=== PATIENT | male | born 1955 | race Caucasian/White ===

== ENCOUNTER → 2017-12-10 13:24 | Outpatient (CLI) | payer OTHER, MEDICARE, SELFPAY ==
--- NOTE | 2017-12-10 13:38 | EKG12_ITS ---
Test Reason : MEDICATION USE Blood Pressure : / mmHG Vent. Rate : 069 BPM Atrial Rate : 069 BPM P-R Int : 156 ms QRS Dur : 090 ms QT Int : 368 ms P-R-T Axes : 024 049 027 degrees QTc Int : 394 ms Normal sinus rhythm Low voltage QRS Nonspecific ST and T wave abnormality Abnormal ECG Confirmed by CESAR BROWN ([id number]), make up editor BERKLEY MONIQUE ([id number]) on 12/20/2017 4:53:06 PM Referred By: OUT DOCTOR Confirmed By:CESAR BROWN
== END ==
PROVIDERS: Family Provider Nurse Practitioner; PCP Nurse Practitioner
DX: G20 Parkinson's disease (principal); Z79.899 Other long term (current) drug therapy; R44.3 Hallucinations, unspecified
CPT/HCPCS: 93005

== ENCOUNTER → 2018-03-07 12:51 | Outpatient (CLI) | payer OTHER, MEDICARE, SELFPAY | PROVIDERS: Family Provider Nurse Practitioner; PCP Nurse Practitioner; Visit Provider Nurse Practitioner | DX: R05 Cough (principal) | CPT/HCPCS: 71046 ==

== ENCOUNTER → 2018-03-07 13:43 | Outpatient (CLI) | payer OTHER, MEDICARE, SELFPAY ==
[2018-03-07 13:51] LABS: Hematocrit 39.1 % (40-54); Hemoglobin 13.7 g/dl (13.0-16.5); Mean Corpuscular Hgb 33.1 pg (27.0-32.0); Mean Corpuscular Volume 94.4 fL (80-94); Platelet Count 167 K/mm3 (150-450); RBC Distribution Width CV 12.5 % (11.6-14.6); RBC Distribution Width SD 42.2 fl (35.1-43.9); Red Blood Count 4.14 M/mm3 (4.6-6.2); Scan Indicated on CBC? Y/N NO; White Blood Count 4.8 K/mm3 (4.4-11.0)
[2018-03-07 14:16] LABS: ALB/GLOB Ratio 1.1 RATIO (0.9-2.4); AST(SGOT) 22 U/L (15-37); Alanine Aminotransfer ALT/SGPT 10 U/L (16-61); Albumin, Serum 3.4 g/dL (3.2-5.0); Alkaline Phosphatase 60 U/L (45-117); Anion Gap 10 (5-15); BUN 17 mg/dL (7-18); BUN/Creat Ratio 13.2 RATIO (10-20); Calcium,Total 8.5 mg/dL (8.5-10.1); Chloride 107 mmol/L (98-107); Creatinine, Serum 1.29 mg/dL (0.70-1.30); EST Glomerular Filtration Rate 60 mL/min (>60); Est Glom Filt Rate - Afr Amer 72 mL/min (>60); Globulin 3.1 g/dL (2.2-4.2); Glucose 98 mg/dL (74-106); Protein, Total 6.5 g/dL (6.4-8.2); Sodium Level 140 mmol/L (136-145)
== END ==
PROVIDERS: Family Provider Nurse Practitioner; PCP Nurse Practitioner; Visit Provider Nurse Practitioner
DX: R05 Cough (principal)
CPT/HCPCS: 80053; 85027

== ENCOUNTER 2018-03-08 12:21 | Emergency (ER) | payer OTHER, MEDICARE, SELFPAY ==
[2018-03-08 12:23] VITALS: BP 131/84; PULSE 84; RESP 25; TEMP 36.6; O2SAT 94; BMI 26.7
[2018-03-08 13:07] LABS: Absolute Lymphocyte Count 0.38 X10^3/ul (0.83-4.51); Absolute Neutrophil Count 3.1 X10^3/uL (2.0-7.7); Basophil# 0.01 X10^3/uL; Basophil% 0.2 % (0-1); Differential Indicated SCAN CRITERIA MET; Eosinophil# 0.11 X10^3/uL; Eosinophils% 2.6 % (0-5); Hematocrit 39.4 % (40-54); Hemoglobin 13.6 g/dl (13.0-16.5); Lymphocyte # 0.38 X10^3/ul (4.0); Mean Corp Hgb Conc 34.5 g/gl (32-36); Mean Corpuscular Hgb 32.5 pg (27.0-32.0); Mean Corpuscular Volume 94.3 fL (80-94); Mean Platelet Vol. 9.7 fl (6.2-12.0); Monocyte# 0.57 X10^3/uL; Monocyte% 13.5 % (0-10); Neutrophil # 3.14 X10^3/uL (2.7-7.7); Neutrophil % 74.5 % (47-70); POSITIVE COUNT NO; POSITIVE DIFFERENTIAL YES; POSITIVE MORPHOLOGY NO; Platelet Count 169 K/mm3 (150-450); RBC Distribution Width CV 12.8 % (11.6-14.6); RBC Distribution Width SD 44.1 fl (35.1-43.9); Red Blood Count 4.18 M/mm3 (4.6-6.2); White Blood Count 4.2 K/mm3 (4.4-11.0)
[2018-03-08 13:18] LABS: Anion Gap 10 (5-15); BUN 17 mg/dL (7-18); BUN/Creat Ratio 12.7 RATIO (10-20); Calcium,Total 8.9 mg/dL (8.5-10.1); Chloride 106 mmol/L (98-107); Creatinine, Serum 1.34 mg/dL (0.70-1.30); EST Glomerular Filtration Rate 57 mL/min (>60); Est Glom Filt Rate - Afr Amer 69 mL/min (>60); Estimated Creatinine Clearance 63.77 ml/min; Glucose 100 mg/dL (74-106); Potassium 3.6 mmol/L (3.5-5.1); Sodium Level 139 mmol/L (136-145)
[2018-03-08 13:22] VITALS: BP 124/79; PULSE 86; RESP 16; O2SAT 95
[2018-03-08] MEDS: Diphth,Pertuss(Acell),Tet Vac 0.5 ML Vial IM (13:26)
[2018-03-08] MEDS: 0.9% Normal Saline 1,000 ML 150 ML IV (13:26)
[2018-03-08] MEDS: LORazepam 2 MG/ML Syringe 1 MG IV (13:26)
--- NOTE | 2018-03-08 14:27 | ED.VISSUMM ---
- ER Visit Summary Date of Service: 03/08/18 Chief Complaint: [Anxiety and fall] History of Present Illness: The patient is a 63 M [presents the emergency department with complaint of a fall that took place prior to arrival in the emergency department today. Patient states that [place] and he was walking when he started feeling like his legs would not work anymore and he fell onto his knees and hands. Patient denies striking his head or loss of consciousness. Patient states that then he subsequently developed chest pressure and felt like he was having a panic attack. Patient on arrival to the ER still feels very anxious. Patient's arrived and states that patient is scheduled to go to court soon and it has been weighing on his mind. Patient also has not been sleeping well at night. Patient does have a history of Parkinson's disease. Patient currently denies any chest pain but just states that he feels anxious. Patient also recently was started on Levaquin yesterday for a cough that he has had for over a week.] Physical Examination: [HEENT-PERRLA, EOMI. Cranial nerves II through XII grossly intact. TMs clear. Mucous membranes moist. No adenopathy. Cardiovascular-regular rate and rhythm without murmur or ectopy Lungs-clear to auscultation, chest wall stable without crepitus or subcu emphysema Abdomen-normoactive bowel sounds, soft, nontender, no rebound or rigidity, no peritoneal signs. Extremities-intact ?4, normal range of motion, normal pulses. Patient has superficial abrasion to his left knee and left elbow noted. No significant bony tenderness on exam. Neurovascularly intact. Test Results: [EKG obtained on arrival showed a sinus rhythm with a ventricular rate of 95 bpm with some nonspecific ST changes noted. Patient does have a stimulator that is affecting the baseline EKG. CBC with differential obtained showed a white count of 4.2, hemoglobin 13.6, hematocrit 39, platelets 169. Chemistries unremarkable. Troponin was less than 0.015. Chest x-ray showed some atelectasis otherwise nothing acute. CT scan of the brain without contrast showed nothing acute.] Emergency Department Course and Treatment: [She was given Adacel tetanus booster and 1 mg of Ativan. Patient felt significantly improved after treatment.] Treatment Plan: [Patient advised to follow-up with his primary care physician within next 3-5 days] Disposition: [Discharged home in stable condition] Impression: [Anxiety reaction Fall] This note was generated with [employer] dictation software. It may contain incorrect words, spelling, and punctuation that were not noted in review of the chart prior to signing ED Disposition - Plan for ED Patient: Chief Complaint: General Illness Referrals: Radha Rey [Primary Care Provider] -
--- NOTE | 2018-03-08 14:31 | ED.DEP ---
ED Disposition - Plan for ED Patient: Chief Complaint: General Illness Instructions: ED Mechanical Fall, ED Stress React Referrals: Radha Rey [Primary Care Provider] - 3-5 Days
[2018-03-08 14:53] VITALS: BP 120/76; PULSE 87; RESP 16; O2SAT 95
[2018-03-09 11:19] LABS: Pathologist Review Reviewed
== END 2018-03-08 15:01 | disposition home or self-care (01) ==
PROVIDERS: Emergency Provider Emergency Medicine; Family Provider Nurse Practitioner; PCP Nurse Practitioner
DX: F41.1 Generalized anxiety disorder (principal); S80.212A Abrasion, left knee, initial encounter; S50.312A Abrasion of left elbow, initial encounter; J98.11 Atelectasis; W19.XXXA Unspecified fall, initial encounter; Y93.9 Activity, unspecified; Y92.9 Unspecified place or not applicable; G20 Parkinson's disease; R05 Cough; Z79.899 Other long term (current) drug therapy
CPT/HCPCS: 70450; 71045; 80048; 84484; 85025; 90715; 93005; 96361; 96374; 99283; J7030; A4216

== ENCOUNTER 2018-04-01 14:04 | Emergency (ER) | payer OTHER, MEDICARE, SELFPAY ==
[2018-04-01 14:05] VITALS: BP 132/91; PULSE 81; RESP 18; TEMP 36.7; O2SAT 95; BMI 28.5
--- NOTE | 2018-04-01 14:35 | ED.VISSUMM ---
- ER Visit Summary Date of Service: 04/01/18 Chief Complaint: Mental status change History of Present Illness: The patient is a [address] of Parkinson's disease. Reportedly patient was at home. He was seeing little man. They were waiting to him. He was concerned because 1 of their cars was missing any thought it was stolen. He called the police. When police arrived on home they thought he was somewhat mentally not right ankle of the squad have him brought in to be evaluated. Patient denies any complaints such as headache, chest pain, shortness of breath or abdominal pain. He denies recent fever or head trauma. Physical Examination: Older male no acute distress. Vital signs are stable and afebrile. His pulse ox is 95% room air no signs of hypoxia. H EENT exam unremarkable. No facial droop. Tongue midline. Moist mucous membranes. No signs of trauma. Neck nontender. No meningismus. Lungs clear to auscultation bilaterally. Heart regular rhythm no murmur. Abdomen is soft and nontender. He is moving all 4 extremities. They are neurovascularly intact. Calves are nontender without edema. Back is nontender. Neurologically he is awake. He is following commands. He is answering questions. He is not violent nor belligerent. He is talking calmly. He thinks the month is May. However he knows he is at [facility]. He knows the president 9 states. And he knows the year. There are no focal motor deficits. Test Results: CBC shows a white count of 5. Hemoglobin 12.8. No bands. Electrolytes unremarkable. Gap of 5. Creatinine 1.36 which is his baseline. Alcohol level is negative. Tox screen is negative. UA is negative. Chest x-ray shows no acute abnormality read both by myself the radiologist. Left side of the chest there appeared to be a neurostimulator. Emergency Department Course and Treatment: Older male with visual hallucinations of seeing little men. I spoke to the patient's who was present in the emergency department and she had a long discussion around 16:25 pm. states that they know his hallucinations are from 1 of his Parkinsonian medications. I attempted to speak to the patient's neurologist Dr. Brad Greenwood. He is transitioning from his practice at [facility] to [facility]. When I spoke to the [facility] neurology department he does not start there for 3 more weeks. I am currently unable to get hold of him. Treatment Plan: Discharged to home. Continue his current medications. Begin weaning his Seroquel. Call and follow-up with his neurologist. Disposition: Discharge Impression: Acute on chronic visual hallucinations History of Parkinson's disease for 18 years. This note was generated with [employer] dictation software. It may contain incorrect words, spelling, and punctuation that were not noted in review of the chart prior to signing ED Disposition - Plan for ED Patient: Chief Complaint: Mental Health Referrals: Radha Rey [Primary Care Provider] -
--- NOTE | 2018-04-01 14:37 | RAD_ITS ---
STUDY: X-RAY CHEST REASON FOR EXAM: Male, 63 years old. Cough. Mental health clearance. TECHNIQUE: Single AP portable view of the chest. COMPARISON: Comparison is made with prior study dated February 28, 2018. FINDINGS: A left-sided cerebral pacemaker is seen. Scattered calcified granuloma. Stable minimal left basilar scarring. There is no demonstrated pleural abnormality. Normal size heart. Normal mediastinum and pepe. Normal visualized pulmonary arteries. There is atherosclerotic tortuosity of the aortic arch and descending thoracic aorta. There are diffuse degenerative changes of the visualized thoracic spine. Normal visualized ribs, clavicles, and shoulders. There is no demonstrated abnormality of the visualized soft tissue structures of the upper abdomen. RAD/Chest 1 View (Portable) IMPRESSION: No acute amount is seen. Stable examination. Electronically Signed: Jea Duarte MD at 15:21 EDT Tel [phone], Service support ,
--- NOTE | 2018-04-01 14:39 | ED.DCSUM_ITS ---
- ER Visit Summary Date of Service: 04/01/18 Chief Complaint: Mental status change History of Present Illness: The patient is a [address] of Parkinson's disease. Reportedly patient was at home. He was seeing little man. They were waiting to him. He was concerned because 1 of their cars was missing any thought it was stolen. He called the police. When police arrived on home they thought he was somewhat mentally not right ankle of the squad have him brought in to be evaluated. Patient denies any complaints such as headache, chest pain , shortness of breath or abdominal pain. He denies recent fever or head trauma. Physical Examination: Older male no acute distress. Vital signs are stable and afebrile. His pulse ox is 95% room air no signs of hypoxia. H EENT exam unremarkable. No facial droop. Tongue midline. Moist mucous membranes. No signs of trauma. Neck nontender. No meningismus. Lungs clear to auscultation bilaterally. Heart regular rhythm no murmur. Abdomen is soft and nontender. He is moving all 4 extremities. They are neurovascularly intact. Calves are nontender without edema. Back is nontender. Neurologically he is awake. He is following commands. He is answering questions. He is not violent nor belligerent. He is talking calmly. He thinks the month is May. However he knows he is at [facility]. He knows the president 9 states. And he knows the year. There are no focal motor deficits. Test Results: CBC shows a white count of 5. Hemoglobin 12.8. No bands. Electrolytes unremarkable. Gap of 5. Creatinine 1.36 which is his baseline. Alcohol level is negative. Tox screen is negative. UA is negative. Chest x- ray shows no acute abnormality read both by myself the radiologist. Left side of the chest there appeared to be a neurostimulator. Emergency Department Course and Treatment: Older male with visual hallucinations of seeing little men. I spoke to the patient's who was present in the emergency department and she had a long discussion around 16:25 pm. states that they know his hallucinations are from 1 of his Parkinsonian medications. I attempted to speak to the patient's neurologist Dr. Brad Greenwood. He is transitioning from his practice at [facility] to [facility]. When I spoke to the [facility] neurology department he does not start there for 3 more weeks. I am currently unable to get hold of him. Treatment Plan: Discharged to home. Continue his current medications. Begin weaning his Seroquel. Call and follow-up with his neurologist. Disposition: Discharge Impression: Acute on chronic visual hallucinations History of Parkinson's disease for 18 years. This note was generated with [employer] dictation software. It may contain incorrect words, spelling, and punctuation that were not noted in review of the chart prior to signing ED Disposition - Plan for ED Patient: Chief Complaint: Mental Health Referrals: Radha Rey [Primary Care Provider] -
[2018-04-01 15:04] VITALS: RESP 16
[2018-04-01 15:20] LABS: Absolute Lymphocyte Count 0.56 X10^3/ul (0.83-4.51); Absolute Neutrophil Count 3.8 X10^3/uL (2.0-7.7); Basophil# 0.01 X10^3/uL; Basophil% 0.2 % (0-1); Hematocrit 39.1 % (40-54); Hemoglobin 12.8 g/dl (13.0-16.5); Lymphocyte # 0.56 X10^3/ul (4.0); Lymphocyte % 11.2 % (19-41); Mean Corp Hgb Conc 32.7 g/gl (32-36); Mean Corpuscular Hgb 31.5 pg (27.0-32.0); Mean Corpuscular Volume 96.3 fL (80-94); Mean Platelet Vol. 10.1 fl (6.2-12.0); Neutrophil # 3.84 X10^3/uL (2.7-7.7); Neutrophil % 76.4 % (47-70); Platelet Count 127 K/mm3 (150-450); RBC Distribution Width CV 13.4 % (11.6-14.6); Red Blood Count 4.06 M/mm3 (4.6-6.2)
[2018-04-01 15:21] LABS: Differential Indicated SCAN CRITERIA MET; POSITIVE COUNT NO; POSITIVE DIFFERENTIAL YES; POSITIVE MORPHOLOGY NO
[2018-04-01 15:27] LABS: Anion Gap 5 (5-15); BUN 19 mg/dL (7-18); Calcium,Total 7.9 mg/dL (8.5-10.1); Chloride 112 mmol/L (98-107); Creatinine, Serum 1.36 mg/dL (0.70-1.30); EST Glomerular Filtration Rate 56 mL/min (>60); Est Glom Filt Rate - Afr Amer 68 mL/min (>60); Estimated Creatinine Clearance 61.02 ml/min; Glucose 100 mg/dL (74-106); Potassium 4.1 mmol/L (3.5-5.1); Sodium Level 144 mmol/L (136-145)
[2018-04-01 15:50] LABS: Differential Comment SCANNED
[2018-04-01 16:04] VITALS: RESP 16
[2018-04-01 16:14] LABS: Bacteria 0 SEEN /hpf (None Seen)
[2018-04-01 16:17] LABS: Color, Urine Amber (Yellow); Glucose, Dipstick Normal (Normal); Ketone-Dipstick 15 mg/dl (Negative); Leukocyte Esterase-Dipstick Negative /ul (Negative); Nitrite-Dipstick Negative (Negative); Occult Blood-Urine 10 /ul (Negative); Protein-Dipstick 15 mg/dl (Negative); Urine Clarity Cloudy (Clear); Urine Urobilinogen 1 mg/dl (Normal)
[2018-04-01 16:19] LABS: Urine Bilirubin Dipstick 1 mg/dL (Negative)
[2018-04-01 16:29] LABS: Mucous, Urine 4+ /hpf (<or=2+); Squamous Epithelial Cells - UA 0-5 SEEN /hpf (0-5)
[2018-04-01 16:30] LABS: White Blood Cells 0-5 SEEN /hpf (0-5)
[2018-04-01 16:33] LABS: Red Blood Cells-Urine 0 SEEN /hpf (0-5)
--- NOTE | 2018-04-01 16:45 | ED.DEP ---
ED Disposition - Plan for ED Patient: Disposition: Home or Assisted Living Chief Complaint: Mental Health Referrals: Radha Rey [Primary Care Provider] - As soon as possible Additional Instructions: Call and follow-up with his neurologist. I tried to get a hold of Dr. Brad Greenwood today according to the [facility] neurology department he does not start there for 3 more weeks. I was unable to speak with him. Continue his current medications. You can begin to wean his Seroquel.
[2018-04-01 16:50] LABS: Amphetamine Urine VISTA NEGATIVE (<1000 ng/mL); Barbiturate Urine VISTA NEGATIVE (< 200 ng/mL); Benzodiazepine Urine VISTA NEGATIVE (< 200 ng/mL); Cocaine Urine VISTA NEGATIVE (< 300 ng/mL); Ecstacy Urine VISTA NEGATIVE (< 500 ng/mL); Methadone Urine VISTA NEGATIVE (< 300 ng/mL); PCP Urine VISTA NEGATIVE (< 25 ng/mL); THC Urine VISTA NEGATIVE (< 50 ng/mL); Vista UDS pH Range 5
[2018-04-01 16:58] VITALS: BP 134/88; PULSE 80; RESP 17; O2SAT 96
== END 2018-04-01 16:59 | disposition home or self-care (01) ==
PROVIDERS: Emergency Provider Emergency Medicine; Family Provider Nurse Practitioner; PCP Nurse Practitioner
DX: R44.1 Visual hallucinations (principal); R41.82 Altered mental status, unspecified; G20 Parkinson's disease; Z96.9 Presence of functional implant, unspecified; Z79.899 Other long term (current) drug therapy
CPT/HCPCS: 71045; 80048; 80307; 80320; 81001; 85025; 99284; G0480

== ENCOUNTER → 2018-05-30 15:44 | Outpatient (CLI) | payer OTHER, MEDICARE, SELFPAY ==
--- NOTE | 2018-05-30 15:47 | RAD_ITS ---
STUDY: X-RAY - RIGHT SHOULDER REASON FOR EXAM: Male, 63 years old. Pain TECHNIQUE: 4 view(s) of the shoulder. COMPARISON: None. FINDINGS: Normal glenohumeral articulation. Normal acromioclavicular joint. Normal acromion. Normal humeral head and visualized proximal humerus. The soft tissue structures are unremarkable. Normal visualized pulmonary apex. RAD/Shoulder min 2 Views IMPRESSION: Normal x-ray examination of the shoulder. No fracture. No calcific bursitis or tendinitis Electronically Signed: Driss Wallace MD at 3:07 EST Tel , Service support ,
== END ==
PROVIDERS: Family Provider Nurse Practitioner; PCP Nurse Practitioner; Referring Provider Nurse Practitioner; Visit Provider Nurse Practitioner
DX: M25.511 Pain in right shoulder (principal)
CPT/HCPCS: 73030

== ENCOUNTER 2019-01-12 12:43 | Emergency (ER) | payer OTHER, MEDICARE, SELFPAY ==
[2019-01-12 12:44] VITALS: BP 142/100; PULSE 68; RESP 14; TEMP 36.7; O2SAT 96; BMI 28.5
--- NOTE | 2019-01-12 12:47 | CT_ITS ---
STUDY: CT BRAIN WITHOUT CONTRAST REASON FOR EXAM: Male, 64 years old. Found unresponsive. RADIATION DOSAGE (If Supplied By Facility): CTDIvol = ( 44.99 ) mGy, DLP = ( 829.85 ) mGycm TECHNIQUE: Transaxial CT imaging of the brain was performed without administration of intravenous contrast material. Coronal and sagittal reconstructions were performed. Individualized dose optimization techniques were used for this CT. COMPARISON: CT head without contrast 03/08/2018. FINDINGS: Normal soft tissue structures. Normal calvarium. Normal size ventricles and extra-axial spaces for the patient's age. Normal white matter tracts of the cerebral hemispheres. Symmetrical neurostimulator leads used for deep brain stimulation for Parkinson's disease in the subthalamic nuclei are unchanged. Normal basal ganglia and thalami. Normal brainstem. Normal cerebellum. There is no intracranial hemorrhage. There are no findings of an acute ischemic infarction. Normal visualized paranasal sinuses. CT/Brain/Head without Contrast IMPRESSION: 1. No CT evidence of intracranial bleeding, acute ischemic infarct or acute intracranial abnormality. 2. Symmetrical neurostimulator leads in the subthalamic nuclei used for deep brain stimulation in the treatment of Parkinson's disease are unchanged. 3. No significant interval change when compared to 03/08/2018. Electronically Signed: Olayinka Alvarado MD at 14:16 EDT , Service support ,
--- NOTE | 2019-01-12 12:49 | EKG12_ITS ---
Test Reason : UNRESPONSIVE Blood Pressure : / mmHG Vent. Rate : 067 BPM Atrial Rate : 067 BPM P-R Int : 102 ms QRS Dur : 120 ms QT Int : 404 ms P-R-T Axes : 020 103 193 degrees QTc Int : 426 ms Sinus rhythm with short MD Rightward axis Low Voltage QRS (Limb Leads) Nonspecific ST & & T Wave Abnormality Abnormal ECG Confirmed by ARIANA TURCIOS, HÉCTOR ([id number]), film and video editor PRESLEY HARRIS ([id number]) on 01/16/2019 1:32:45 PM Referred By: JOSELUIS Confirmed By:HÉCTOR LANE MD
--- NOTE | 2019-01-12 13:02 | ED.VIS.GEN ---
History of Present Illness Chief Complaint: Unresponsive Informant: Significant Other, Litigation Manager Limited by: - - Patient does not respond to verbal or tactile stimulus Onset: Today Context: Sudden Onset Timing: Continuous Quality: Patient not responsive Location: Found by at home Current Severity: - - Unable to determine Maximum Severity: - - Unable to determine Worsened by: Unknown Relieved by: Unknown Associated Symptoms: Patient nonverbal Narrative: Patient is a 64-year-old male with history of heart disease with a brain stimulator in place who was brought to the emergency room by ambulance after found him unresponsive. Patient's eyes are closed. He will not move his extremities. When his right upper extremity was placed over his head he lowered his left upper extremity slowly and avoided hitting his face. Patient muscles contracted to noxious stimuli. He would not flex or extend the stimulated extremity. When asked to open his eyes he closed his eyelids tighter. The charge nurse, andrés informed me that he was looking around initially and looked at him. Spoke to the regarding stress finances etc. she states that they are doing well as a couple and financially. She states this is never happened before. Prior similar symptoms: No Recent Illness/Hospitalization: No Past Medical History - Allergies and Home Meds Allergies/Adverse Reactions: Allergies No Known Allergies Allergy (Verified 01/12/19 13:03) Primary Care Physician: Radha Rey NP-C [Primary Care Provider] - Past Medical History: - - Per patient has Parkinson's disease. Surgical History: - - Brain stimulator Lives: Spouse/ Significant Other Smoking Status: Never smoker Review of Systems ROS: Unable to Obtain - Documented what was available through . Physical Exam Vital Signs/Narrative: Vital Signs Temp Pulse Resp BP Pulse Ox 01/12/19 12:44 98.0 F 68 14 142/100 H 96 General: Well nourished, Well developed, No Acute Distress Head: Normocephalic, Atraumatic Eyes: Perrl, EOMI. Negative for: Pale conjunctiva, Scleral icterus ENT: Moist mucous membranes, No rhinorrhea, TM's clear - Optic stimulation patient does get a pacemaker with Neck: Supple, Nontender, No lymphadenopathy, No JVD Cardiovascular: Regular rate, Regular rhythm, No murmurs, Normal S1, Normal S2 Respiratory: No distress, CTA bilaterally, Chest nontender Rectal: Deferred Back: Nontender Extremities: No edema Skin: Normal color, No rash, No Trauma. Negative for: Cyanosis, Diaphoresis, Jaundice Neurological: - - Limited for reasons documented Psychological: - - Unable to assess Diagnostic/Tx/Re-eval Impressions Brain CT 01/12/19 12:47 IMPRESSION: 1. No CT evidence of intracranial bleeding, acute ischemic infarct or acute intracranial abnormality. 2. Symmetrical neurostimulator leads in the subthalamic nuclei used for deep brain stimulation in the treatment of Parkinson's disease are unchanged. 3. No significant interval change when compared to 03/08/2018. Electronically Signed: Olayinka Alvarado MD at 14:16 EDT , Service support , 01/12/19 12:47 Brain/Head without Contrast [CT] Stat Laboratory Results 01/12/19 01/12/19 01/12/19 13:10 13:10 13:20 WBC 6.2 RBC 4.83 Hgb 15.9 Hct 45.7 MCV 94.6 H MCH 32.9 H MCHC 34.8 RDW 12.8 RDW Differential 44.3 H Plt Count 137 L MPV 10.1 Immature Gran % (Auto) 0.200 Neut % (Auto) 79.2 H Lymph % (Auto) 11.5 L Randolph % (Auto) 6.5 Eos % (Auto) 2.3 Baso % (Auto) 0.3 Absolute Neuts (auto) 4.9 Absolute Lymphs (auto) 0.71 L Total Counted Not Reportable Sodium 140 Potassium 4.3 Chloride 107 Carbon Dioxide 29.0 Anion Gap 4 L BUN 17 Creatinine 1.22 Estim Creat Clear Calc 67.14 Est GFR (MDRD) Af Amer 77 Est GFR (MDRD) Non-Af 64 BUN/Creatinine Ratio 13.9 Glucose 95 Calcium 9.1 Total Bilirubin 0.60 AST 13 L ALT 7 L Alkaline Phosphatase 69 Total Protein 7.2 Albumin 4.2 Globulin 3.0 Albumin/Globulin Ratio 1.4 Urine Color Urine Clarity Urine pH Ur Specific [place] Urine Protein Urine Glucose (UA) Urine Ketones Urine Occult Blood Urine Nitrite Urine Bilirubin Urine Urobilinogen Ur Leukocyte Esterase Urine RBC Urine WBC Ur Squamous Epith Cells Urine Bacteria Urine Mucus Urine Opiates Screen NEGATIVE Urine Methadone Screen NEGATIVE Ur Barbiturates Screen NEGATIVE Ur Phencyclidine Scrn NEGATIVE Ur Amphetamines Screen NEGATIVE U Methamphetamin-MDMA NEGATIVE U Benzodiazepines Scrn NEGATIVE Urine Cocaine Screen NEGATIVE U Cannabinoids Screen NEGATIVE Ur Drug Screen Comment 01/12/19 13:20 WBC RBC Hgb Hct MCV MCH MCHC RDW RDW Differential Plt Count MPV Immature Gran % (Auto) Neut % (Auto) Lymph % (Auto) Randolph % (Auto) Eos % (Auto) Baso % (Auto) Absolute Neuts (auto) Absolute Lymphs (auto) Total Counted Sodium Potassium Chloride Carbon Dioxide Anion Gap BUN Creatinine Estim Creat Clear Calc Est GFR (MDRD) Af Amer Est GFR (MDRD) Non-Af BUN/Creatinine Ratio Glucose Calcium Total Bilirubin AST ALT Alkaline Phosphatase Total Protein Albumin Globulin Albumin/Globulin Ratio Urine Color Yellow Urine Clarity Clear Urine pH 6.0 Ur Specific [place] 1.015 Urine Protein Negative Urine Glucose (UA) Normal Urine Ketones 5 H Urine Occult Blood 25 H Urine Nitrite Negative Urine Bilirubin Negative Urine Urobilinogen Normal Ur Leukocyte Esterase Negative Urine RBC 0-5 SEEN Urine WBC 0 SEEN Ur Squamous Epith Cells 0 SEEN Urine Bacteria 0 SEEN Urine Mucus 0 SEEN Urine Opiates Screen Urine Methadone Screen Ur Barbiturates Screen Ur Phencyclidine Scrn Ur Amphetamines Screen U Methamphetamin-MDMA U Benzodiazepines Scrn Urine Cocaine Screen U Cannabinoids Screen Ur Drug Screen Comment - Rhythm Strip Rhythm Strip: Sinus Rhythm Rate: 70 Ectopy: None - EKG Initial EKG Interpretation: Sinus Rhythm - Ventricular rate is 67. LA interval is 102 ms. QRS durations 120 ms. QT interval is 404 ms.. There is artifact noted. There is decreased anterior force noted. - Medical Decision Making With history of patient looking at charge nurse, closing his eyelids tighter when asked to open and avoiding his left upper extremity striking his face suspect patient has a conversion reaction. Will obtain appropriate blood work to assess for metabolic and infectious causes and will obtain CAT scan of the head as well to evaluate for any intracranial pathology that would explain his presentation.. I was informed at 1320 the patient is talking and responsive. Patient and spouse were informed of results. Since there are no objective findings and work-up is negative suspect patient has conversion reaction. asked with the most common cause of conversion reaction is. She was told psychological disorder. What needs to be determined is the trigger. She acknowledged yes that this probably is the cause. ED Disposition - Plan for ED Patient: Disposition: Home or Assisted Living Diagnosis: Conversion reaction Instructions: CONVERSION DISORDER (Conversion Reaction) Referrals: Radha Rey NP-C [Primary Care Provider] - 3-5 Days
[2019-01-12 13:21] LABS: Absolute Lymphocyte Count 0.71 X10^3/ul (0.83-4.51); Absolute Neutrophil Count 4.9 X10^3/uL (2.0-7.7); Basophil# 0.02 X10^3/uL; Basophil% 0.3 % (0-1); Eosinophil# 0.14 X10^3/uL; Eosinophils% 2.3 % (0-5); Hematocrit 45.7 % (40-54); Hemoglobin 15.9 g/dl (13.0-16.5); Lymphocyte # 0.71 X10^3/ul (4.0); Lymphocyte % 11.5 % (19-41); Mean Corp Hgb Conc 34.8 g/gl (32-36); Mean Corpuscular Hgb 32.9 pg (27.0-32.0); Mean Corpuscular Volume 94.6 fL (80-94); Mean Platelet Vol. 10.1 fl (6.2-12.0); Monocyte% 6.5 % (0-10); Neutrophil # 4.92 X10^3/uL (2.7-7.7); Neutrophil % 79.2 % (47-70); Platelet Count 137 K/mm3 (150-450); RBC Distribution Width CV 12.8 % (11.6-14.6); RBC Distribution Width SD 44.3 fl (35.1-43.9); Red Blood Count 4.83 M/mm3 (4.6-6.2); White Blood Count 6.2 K/mm3 (4.4-11.0)
[2019-01-12 13:23] LABS: POSITIVE COUNT NO; POSITIVE DIFFERENTIAL NO; POSITIVE MORPHOLOGY NO
[2019-01-12 13:27] LABS: Bacteria 0 SEEN /hpf (None Seen); Mucous, Urine 0 SEEN /hpf (<or=2+); Squamous Epithelial Cells - UA 0 SEEN /hpf (0-5); White Blood Cells 0 SEEN /hpf (0-5)
[2019-01-12 13:29] LABS: Color, Urine Yellow (Yellow); Glucose, Dipstick Normal (Normal); Ketone-Dipstick 5 mg/dl (Negative); Leukocyte Esterase-Dipstick Negative /ul (Negative); Nitrite-Dipstick Negative (Negative); Occult Blood-Urine 25 /ul (Negative); Protein-Dipstick Negative (Negative); Specific Gravity, Urine 1.015 (1.002-1.030); Urine Bilirubin Dipstick Negative (Negative); Urine Clarity Clear (Clear); Urine Urobilinogen Normal (Normal)
[2019-01-12 13:40] LABS: ALB/GLOB Ratio 1.4 RATIO (0.9-2.4); AST(SGOT) 13 U/L (15-37); Alanine Aminotransfer ALT/SGPT 7 U/L (16-61); Albumin, Serum 4.2 g/dL (3.2-5.0); Alkaline Phosphatase 69 U/L (45-117); Anion Gap 4 (5-15); BUN 17 mg/dL (7-18); BUN/Creat Ratio 13.9 RATIO (10-20); Calcium,Total 9.1 mg/dL (8.5-10.1); Chloride 107 mmol/L (98-107); Creatinine, Serum 1.22 mg/dL (0.70-1.30); EST Glomerular Filtration Rate 64 mL/min (>60); Est Glom Filt Rate - Afr Amer 77 mL/min (>60); Estimated Creatinine Clearance 67.14 ml/min; Glucose 95 mg/dL (74-106); Potassium 4.3 mmol/L (3.5-5.1); Protein, Total 7.2 g/dL (6.4-8.2); Sodium Level 140 mmol/L (136-145)
[2019-01-12 13:43] LABS: Amphetamine Urine VISTA NEGATIVE (<1000 ng/mL); Barbiturate Urine VISTA NEGATIVE (< 200 ng/mL); Benzodiazepine Urine VISTA NEGATIVE (< 200 ng/mL); Cocaine Urine VISTA NEGATIVE (< 300 ng/mL); Ecstacy Urine VISTA NEGATIVE (< 500 ng/mL); Methadone Urine VISTA NEGATIVE (< 300 ng/mL); PCP Urine VISTA NEGATIVE (< 25 ng/mL); THC Urine VISTA NEGATIVE (< 50 ng/mL); Vista UDS pH Range 7
[2019-01-12 13:48] LABS: Red Blood Cells-Urine 0-5 SEEN /hpf (0-5)
[2019-01-12 15:01] VITALS: BP 146/80; PULSE 61; RESP 12; O2SAT 96
== END 2019-01-12 15:03 | disposition home or self-care (01) ==
PROVIDERS: Emergency Provider Emergency Medicine; Family Provider Nurse Practitioner; PCP Nurse Practitioner
DX: F44.9 Dissociative and conversion disorder, unspecified (principal); I51.9 Heart disease, unspecified; Z96.9 Presence of functional implant, unspecified; Z79.899 Other long term (current) drug therapy
CPT/HCPCS: 70450; 80053; 80307; 81001; 85025; 93005; 99285; P9612; A4216

== ENCOUNTER 2019-02-12 08:58 | Emergency (ER) | payer OTHER, MEDICARE, SELFPAY ==
[2019-02-12 08:59] VITALS: BP 134/91; PULSE 87; RESP 18; TEMP 36.7; O2SAT 95; BMI 27.4
--- NOTE | 2019-02-12 09:46 | CT_ITS ---
STUDY: CT BRAIN WITHOUT CONTRAST REASON FOR EXAM: Male, 64 years old. Found on sidewalk, possible fall RADIATION DOSAGE (If Supplied By Facility): CTDIvol = ( 44.99 ) mGy, DLP = ( 779.24 ) mGycm TECHNIQUE: Transaxial CT imaging of the brain was performed without administration of intravenous contrast material. Individualized dose optimization techniques were used for this CT. COMPARISON: 01/12/2019 FINDINGS: Normal soft tissue structures. Normal calvarium. Normal size ventricles and extra-axial spaces for the patient's age. Normal white matter tracts of the cerebral hemispheres. Bilateral neurostimulator leads extending to the bilateral thalami causing moderate spray artifact. Normal basal ganglia and thalami. Normal brainstem. Normal cerebellum. There is no intracranial hemorrhage. There are no findings of an acute ischemic infarction. Normal visualized paranasal sinuses. CT/Brain/Head without Contrast IMPRESSION: 1. No acute intracranial hemorrhage or mass effect. Stable exam. 2. Bilateral neural stimulators. Electronically Signed: Randal Albarran MD at 10:22 EDT , Service support ,
--- NOTE | 2019-02-12 09:46 | CT_ITS ---
STUDY: CT CERVICAL SPINE WITHOUT CONTRAST REASON FOR EXAM: Male, 64 years old. FOUND ON SIDEWALK-?FALL NO OBVIOUS INJURY/DENIES PAIN RADIATION DOSAGE (If Supplied By Facility): CTDIvol = ( 25.10 ) mGy, DLP = ( 427.78 ) mGycm TECHNIQUE: High resolution transaxial imaging was performed without contrast material. Sagittal and coronal images were reconstructed. Individualized dose optimization techniques were used for this CT. COMPARISON: None FINDINGS: Normal craniovertebral junction. Normal anterior atlantoaxial articulation. Normal odontoid process. There is straightening of the normal cervical lordosis. Normal vertebral bodies and posterior osseous elements. C2-3: Normal endplates. Normal disc height and morphology. Normal central canal and intervertebral neuroforamina. C3-4: Mild disc space narrowing with left uncovertebral hypertrophy causing mild left foraminal stenosis. C4-5: Normal endplates. Normal disc height and morphology. Normal central canal and intervertebral neuroforamina. C5-6: Anterior spondylosis with mild disc space narrowing but no substantial canal or foraminal stenosis. C6-7: Anterior spondylosis with mild disc space narrowing but no substantial canal or foraminal stenosis. C7-T1: Normal endplates. Normal disc height and morphology. Normal central canal and intervertebral neuroforamina. Neurostimulator leads noted. CT/Spine Cervical without Contras IMPRESSION: 1. No cervical spine fracture or traumatic subluxation. 2. Mild degenerative changes. Electronically Signed: Randal Albarran MD at 10:24 EDT , Service support ,
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
[2019-02-12 11:06] VITALS: BP 117/87; PULSE 81; RESP 17; O2SAT 97
[2019-02-12 11:07] VITALS: BP 117/87; PULSE 81; RESP 17; O2SAT 97
== END 2019-02-12 11:08 | disposition home or self-care (01) ==
PROVIDERS: Emergency Provider Emergency Medicine; Family Provider Nurse Practitioner; PCP Nurse Practitioner
DX: Z04.3 Encounter for examination and observation following other accident (principal); G20 Parkinson's disease; F32.9 Major depressive disorder, single episode, unspecified; Z79.899 Other long term (current) drug therapy
CPT/HCPCS: 70450; 72125; 99284

== ENCOUNTER → 2019-03-06 | Outpatient (CLI) | payer OTHER, MEDICARE, SELFPAY ==
[2019-02-12 08:59] VITALS: BMI 27.4
--- NOTE | 2019-03-06 14:58 | EKG12_ITS ---
Test Reason : MEDICATION MONITOR Blood Pressure : / mmHG Vent. Rate : 066 BPM Atrial Rate : 066 BPM P-R Int : 166 ms QRS Dur : 096 ms QT Int : 352 ms P-R-T Axes : 028 043 036 degrees QTc Int : 369 ms Normal sinus rhythm Nonspecific T wave abnormality Abnormal ECG Confirmed by CALVIN TURCIOS, FARHAD ([id number]), writer editor PRELSEY HARRIS ([id number]) on 03/08/2019 12:51:29 PM Referred By: OUT DOCTOR Confirmed By:FARHAD SIMPSON MD
== END | disposition home or self-care (01) ==
PROVIDERS: Family Provider Nurse Practitioner; PCP Nurse Practitioner
DX: Z51.81 Encounter for therapeutic drug level monitoring (principal)
CPT/HCPCS: 93005

== ENCOUNTER → 2019-10-23 15:20 | Outpatient (CLI) | payer OTHER, MEDICARE, SELFPAY | PROVIDERS: PCP Nurse Practitioner; Referring Provider Nurse Practitioner; Visit Provider Nurse Practitioner | DX: R05 Cough (principal) | CPT/HCPCS: 87633; 87804; 87807; 94799 ==

== ENCOUNTER 2020-11-01 09:41 | Emergency (ER) | payer MEDICARE, SELFPAY ==
[2020-11-01] VITALS (8 sets, daily range): BP systolic 113–144; BP diastolic 65–93; PULSE 79–89; RESP 14–18; TEMP 36.3; O2SAT 95–96; BMI 29.1
--- NOTE | 2020-11-01 10:10 | CT_ITS ---
STUDY: CT BRAIN WITHOUT CONTRAST REASON FOR EXAM: Male, 65 years old. Change in Mental Status. History of Parkinson''s disease. Dementia. RADIATION DOSAGE (If Supplied By Facility): CTDIvol = ( 44.99 ) mGy, DLP = ( 779.24 ) mGycm TECHNIQUE: Transaxial CT imaging of the brain was performed without administration of intravenous contrast material. Individualized dose optimization techniques were used for this CT. COMPARISON: Comparison is made with prior examination 02/12/2019. FINDINGS: Normal soft tissue structures. Normal calvarium. There is mild cerebral atrophy with widening of the extra-axial spaces and ventricular dilatation. Normal white matter tracts of the cerebral hemispheres. Normal basal ganglia and thalami. Once again, there are bilateral neurostimulator leads extending to the bilateral thalami. This causes moderate degree of beam hardening artifact. Normal brainstem. Normal cerebellum. There is no intracranial hemorrhage. There are no findings of an acute ischemic infarction. Normal visualized paranasal sinuses. CT/Brain/Head without Contrast IMPRESSION: Chronic involutional changes of the brain. Electronically Signed: Jae Duarte MD at 11:13 EDT , Service support ,
--- NOTE | 2020-11-01 10:10 | EKG12_ITS ---
Test Reason : Blood Pressure : / mmHG Vent. Rate : 078 BPM Atrial Rate : 045 BPM P-R Int : 000 ms QRS Dur : 170 ms QT Int : 456 ms P-R-T Axes : 000 056 -09 degrees QTc Int : 519 ms Sinus rhythm Confirmed by VIJI NATHAN MD ([id number]), map editor PRESLEY HARRIS ([id number]) on 11/04/2020 9:41:57 AM Referred By: BIBI Confirmed By:ASHISH NATHAN MD
[2020-11-01 10:49] LABS: Absolute Lymphocyte Count 0.75 X10^3/uL (0.83-4.51); Absolute Neutrophil Count 3.7 X10^3/uL (2.0-7.7); Basophil# 0.04 X10^3/uL; Basophil% 0.8 % (0-1); Eosinophil# 0.18 X10^3/uL; Eosinophils% 3.5 % (0-5); Hematocrit 52.1 % (40-54); Hemoglobin 17.7 g/dL (13.0-16.5); Lymphocyte # 0.75 X10^3/ul (0.83-4.51); Lymphocyte % 14.7 % (19-41); Mean Corpuscular Hgb 32.8 pg (27.0-32.0); Mean Corpuscular Volume 96.7 fL (80-94); Mean Platelet Vol. 9.5 fl (6.2-12.0); Monocyte# 0.41 X10^3/uL; NRBC Flagged by Analyzer 0 % (0-5); Neutrophil # 3.72 X10^3/uL (2.7-7.7); Neutrophil % 72.8 % (47-70); Platelet Count 168 K/mm3 (150-450); RBC Distribution Width CV 12.3 % (11.6-14.6); RBC Distribution Width SD 43.8 fl (35.1-43.9); Red Blood Count 5.39 M/mm3 (4.6-6.2); White Blood Count 5.1 K/mm3 (4.4-11.0)
[2020-11-01 11:16] LABS: Alcohol, Blood (Medical)-Serum < 3.0 mg/dL
[2020-11-01 11:26] LABS: AST(SGOT) 19 U/L (15-37); Alanine Aminotransfer ALT/SGPT 12 U/L (16-61); Albumin, Serum 3.6 g/dL (3.2-5.0); Alkaline Phosphatase 74 U/L (45-117); Anion Gap 4 (5-15); BUN 12 mg/dL (7-18); BUN/Creat Ratio 10.4 RATIO (10-20); Calcium,Total 8.8 mg/dL (8.5-10.1); Chloride 108 mmol/L (98-107); Creatinine, Serum 1.15 mg/dL (0.70-1.30); EST Glomerular Filtration Rate 68 mL/min (>60); Est Glom Filt Rate - Afr Amer 82 mL/min (>60); Estimated Creatinine Clearance 66.12 ml/min; Globulin 3.7 g/dL (2.2-4.2); Glucose 91 mg/dL (74-106); Potassium 4.3 mmol/L (3.5-5.1); Protein, Total 7.3 g/dL (6.4-8.2); Sodium Level 137 mmol/L (136-145); Thyroid Stim Hormone (TSH) 5.45 uIU/mL (0.358-3.74)
--- NOTE | 2020-11-01 11:50 | ED.RN ---
FAXED DEMOGRAPHIC TO [facility]
--- NOTE | 2020-11-01 11:58 | ED.RN ---
FAXED CHART TO [facility]
[2020-11-01] MEDS: Ziprasidone IM 20 MG/ML VIAL IM (14:20)
[2020-11-01 15:22] LABS: Bacteria 0 SEEN /hpf (None Seen); Mucous, Urine 0 SEEN /hpf (<or=2+); Red Blood Cells-Urine 0 SEEN /hpf (0-5); Squamous Epithelial Cells - UA 0 SEEN /hpf (0-5); White Blood Cells 0 SEEN /hpf (0-5)
[2020-11-01 15:25] LABS: Color, Urine Yellow (Yellow); Glucose, Dipstick Normal (Normal); Ketone-Dipstick 15 mg/dl (Negative); Leukocyte Esterase-Dipstick Negative /ul (Negative); Nitrite-Dipstick Negative (Negative); Occult Blood-Urine Negative /ul (Negative); Protein-Dipstick Negative (Negative); Urine Bilirubin Dipstick Negative (Negative); Urine Clarity Clear (Clear); Urine Urobilinogen Normal (Normal)
[2020-11-01 15:38] LABS: Amphetamine Urine VISTA NEGATIVE (<1000 ng/mL); Barbiturate Urine VISTA NEGATIVE (< 200 ng/mL); Benzodiazepine Urine VISTA NEGATIVE (< 200 ng/mL); Cocaine Urine VISTA NEGATIVE (< 300 ng/mL); Ecstacy Urine VISTA NEGATIVE (< 500 ng/mL); Methadone Urine VISTA NEGATIVE (< 300 ng/mL); PCP Urine VISTA NEGATIVE (< 25 ng/mL); THC Urine VISTA NEGATIVE (< 50 ng/mL); Vista UDS pH Range 7
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
--- NOTE | 2020-11-01 20:12 | ED.RN ---
HAD A REFERRAL PUT IN TO [facility] IN [place]
[2020-11-01] MEDS: Carbidopa/Levodopa/Entacapone 200 1 TAB PO (22:31)
[2020-11-01] MEDS: Ziprasidone IM 20 MG/ML VIAL 10 MG IM (22:36)
[2020-11-02] VITALS (11 sets, daily range): BP systolic 111; BP diastolic 73; PULSE 82; RESP 15–18; TEMP 37.2; O2SAT 94
[2020-11-02 01:31] LABS: Bedside Glucose 96 mg/dL (70-110)
--- NOTE | 2020-11-02 05:04 | ED.RN ---
PENDING AT [facility]
--- NOTE | 2020-11-02 07:31 | ED.RN ---
FAXED URINE AND COVID RESULTS TO [facility]
[2020-11-02] MEDS: Levothyroxine 100 MCG Tablet PO (08:13)
[2020-11-02] MEDS: Carbidopa/Levodopa/Entacapone 200 1 TAB PO (08:13)
[2020-11-02] MEDS: Venlafaxine HCl 75 MG Tablet PO (08:13)
[2020-11-02] MEDS: Carbidopa/Levodopa 25/100 Tablet PO (08:13)
[2020-11-02] MEDS: QUEtiapine 25 MG Tablet 50 MG PO (08:13)
--- NOTE | 2020-11-02 08:42 | ED.RN ---
FAXED PINK SLIP, AND COVID SCREENING FORM TO [facility]
--- NOTE | 2020-11-02 09:28 | ED.RN ---
FAXED PINK SLIP TO [facility]
--- NOTE | 2020-11-02 10:23 | CM.ED ---
SOCIAL WORK Received call from Priti with [facility]. Patient accepted to [facility] by Dr. Crisostomo to the [facility] room [address]. Nurse to call report to [phone]. Grid Maker to set up transport. Plan: [facility] Sujata Rivera, FIBER OPTICS ENGINEER, FURNITURE SALES ASSOCIATE
[2020-11-02] MEDS: Ziprasidone IM 20 MG/ML VIAL 10 MG IM (10:27)
== END 2020-11-02 11:15 ==
PROVIDERS: Emergency Provider Emergency Medicine; PCP Nurse Practitioner
DX: G20 Parkinson's disease (principal); F02.81 Dementia in other diseases classified elsewhere, unspecified severity, with behavioral disturbance; K21.9 Gastro-esophageal reflux disease without esophagitis; E03.9 Hypothyroidism, unspecified; Z66 Do not resuscitate; Z79.899 Other long term (current) drug therapy
CPT/HCPCS: 70450; 80053; 80307; 81001; 82077; 82962; 84443; 85025; 87426; 93005; 96372; 99285; J3486

== ENCOUNTER → 2020-12-11 06:10 | Outpatient (REF) | payer MEDICARE, SELFPAY ==
[2020-11-01 09:42] VITALS: BMI 29.1
[2020-12-11 09:11] LABS: Hematocrit 46.3 % (40-54); Hemoglobin 15.3 g/dL (13.0-16.5); Mean Corpuscular Hgb 32.8 pg (27.0-32.0); Mean Corpuscular Volume 99.1 fL (80-94); Mean Platelet Vol. 10.2 fl (6.2-12.0); Platelet Count 191 K/mm3 (150-450); RBC Distribution Width CV 12.5 % (11.6-14.6); RBC Distribution Width SD 45.6 fl (35.1-43.9); Red Blood Count 4.67 M/mm3 (4.6-6.2); White Blood Count 5.1 K/mm3 (4.4-11.0)
[2020-12-11 09:22] LABS: Vitamin B12 255 pg/mL (211-911)
[2020-12-11 09:27] LABS: ALB/GLOB Ratio 1.3 RATIO (0.9-2.4); AST(SGOT) 12 U/L (15-37); Alanine Aminotransfer ALT/SGPT 21 U/L (16-61); Albumin, Serum 3.8 g/dL (3.2-5.0); Alkaline Phosphatase 51 U/L (45-117); Anion Gap 4 (5-15); BUN 16 mg/dL (7-18); BUN/Creat Ratio 15.8 RATIO (10-20); Calcium,Total 8.7 mg/dL (8.5-10.1); Chloride 106 mmol/L (98-107); Creatinine, Serum 1.01 mg/dL (0.70-1.30); EST Glomerular Filtration Rate 79 mL/min (>60); Est Glom Filt Rate - Afr Amer 95 mL/min (>60); Glucose 87 mg/dL (74-106); Potassium 4.5 mmol/L (3.5-5.1); Protein, Total 6.8 g/dL (6.4-8.2); Sodium Level 138 mmol/L (136-145)
== END ==
LOC: OLS.SW400 06:10
PROVIDERS: PCP Nurse Practitioner; Referring Provider Internal Medicine; Visit Provider Internal Medicine
DX: G20 Parkinson's disease (principal); F06.8 Other specified mental disorders due to known physiological condition; F41.9 Anxiety disorder, unspecified; K21.9 Gastro-esophageal reflux disease without esophagitis; F91.9 Conduct disorder, unspecified
CPT/HCPCS: 36415; 80053; 82607; 84443; 85027

== ENCOUNTER → 2020-12-23 04:00 | Outpatient (REF) | payer MEDICARE, SELFPAY ==
[2020-11-01 09:42] VITALS: BMI 29.1
[2020-12-23 07:33] LABS: Color, Urine Yellow (Yellow); Glucose, Dipstick Normal (Normal); Ketone-Dipstick 5 mg/dl (Negative); Leukocyte Esterase-Dipstick Negative /ul (Negative); Nitrite-Dipstick Negative (Negative); Occult Blood-Urine 10 /ul (Negative); Protein-Dipstick Negative (Negative); Specific Gravity, Urine 1.025 (1.002-1.030); Urine Bilirubin Dipstick Negative (Negative); Urine Clarity Clear (Clear); Urine Urobilinogen Normal (Normal)
== END ==
LOC: OLS.SW400 04:00
PROVIDERS: PCP Nurse Practitioner; Visit Provider Internal Medicine
DX: R41.82 Altered mental status, unspecified (principal)
CPT/HCPCS: 81002

== ENCOUNTER → 2020-12-24 03:00 | Outpatient (REF) | payer MEDICARE, SELFPAY ==
[2020-11-01 09:42] VITALS: BMI 29.1
[2020-12-24 08:06] LABS: Color, Urine Yellow (Yellow); Glucose, Dipstick Normal (Normal); Ketone-Dipstick 5 mg/dl (Negative); Leukocyte Esterase-Dipstick Negative /ul (Negative); Nitrite-Dipstick Negative (Negative); Occult Blood-Urine 10 /ul (Negative); Protein-Dipstick Negative (Negative); Urine Bilirubin Dipstick Negative (Negative); Urine Clarity Sl. Cloudy (Clear); Urine Urobilinogen Normal (Normal)
== END ==
LOC: OLS.SW400 03:00
PROVIDERS: PCP Nurse Practitioner; Visit Provider Internal Medicine
DX: N39.0 Urinary tract infection, site not specified (principal); F03.90 Unspecified dementia, unspecified severity, without behavioral disturbance, psychotic disturbance, mood disturbance, and anxiety; R41.82 Altered mental status, unspecified
CPT/HCPCS: 81002; 87086; 87088